=== PATIENT | male | born 1940 | race Hispanic/Latino ===

== ENCOUNTER 2019-01-23 21:59 | Emergency (ER) | payer MEDICARE ==
[~2019-01-23] VITALS: Ht 167.6 cm; Wt 93.4 kg
[2019-01-23 23:19] LABS: BASOPHILS % 0.1 % (0.0-1.0); EOSINOPHILS # (AUTO) 0.1 (0.0-0.4); EOSINOPHILS % 1.2 % (0.0-6.0); HEMATOCRIT 34.2 % (38.2-49.6); HEMOGLOBIN 11.5 g/dL (14.0-18.0); LYMPHOCYTES # (AUTO) 1.7 (1.0-3.2); LYMPHOCYTES % 24.5 % (18.0-39.1); MEAN CORPUSCULAR HEMOGLOBIN 30.7 pg (28-32); MEAN CORPUSCULAR HGB CONC 33.6 g/dL (31-35); MEAN CORPUSCULAR VOLUME 91.2 fL (81-99); MONOCYTES # (AUTO) 0.4 (0.2-0.8); MONOCYTES % 6.2 % (4.4-11.3); NEUTROPHILS # (AUTO) 4.7 (2.1-6.9); NEUTROPHILS % 67.9 % (38.7-80.0); PLATELET COUNT 192 x10e3/uL (140-360); RED BLOOD COUNT 3.75 x10e6/uL (4.3-5.7); RED CELL DISTRIBUTION WIDTH 13.8 % (11.7-14.4)
--- NOTE | 2019-01-23 23:26 | Diagnostic Imaging Report ---
EXAMINATION: CHEST SINGLE (PORTABLE) INDICATION: pedal edema ^[id number] ^2230 COMPARISON: None FINDINGS: TUBES and LINES: None. LUNGS: Linear density in the right upper lobe associated with elevation of the right hemidiaphragm suggestive of platelike atelectasis. There is no evidence of pneumonia or pulmonary edema. PLEURA: No pleural effusion or pneumothorax. HEART AND MEDIASTINUM: The cardiomediastinal silhouette is unremarkable. BONES AND SOFT TISSUES: No acute osseous lesion. UPPER ABDOMEN: No free air under the diaphragm. IMPRESSION: Right upper lobe platelike atelectasis. Signed by: Dr. Christine Naranjo M.D. on 01/23/2019 11:23 PM
[2019-01-23 23:33] LABS: ALBUMIN/GLOBULIN RATIO 1.3 (0.8-2.0); CALCIUM 9.5 mg/dL (8.4-10.2); CREATININE, SERUM 1.33 mg/dL (0.72-1.25)
[2019-01-24 00:22] LABS: CREATINE KINASE MB 2.4 ng/mL (0-5.0)
[2019-01-24 00:37] VITALS: BP 165/76
[2019-01-24] MEDS ORDERED: FUROSEMIDE INJ 10 MG/ML 4 ML VIAL IV ONE (00:45)
== END 2019-01-24 01:09 | disposition home or self-care (01) ==
LOC: ER 21:59
DX: I10 Essential (primary) hypertension (principal)
CPT/HCPCS: 36415; 71045; 80053; 82550; 82553; 83880; 84484; 85025; 93005; 99284; J1940

== ENCOUNTER 2020-04-09 07:57 | Emergency (ER) | payer MEDICARE ==
[~2020-04-09] VITALS: Ht 167.6 cm; Wt 93.4 kg
--- OUTSIDE RECORDS SUMMARY | 2020-04-09 08:12 | XMS REPORT | Continuity of Care Document ---
Author Author [facility] t Organization [facility] Address [address] [place] [address] Phone Unavailable Care Team Providers Care Administration Vice President Name Role Phone NONSTAFF PCP Unavailable Judit Rodriges MD Attlexis Jadyn TORRES Unavailable Problems This patient has no known problems. Allergies, Adverse Reactions, Alerts This patient has no known allergies or adverse reactions. Medications This patient has no known medications. Procedures This patient has no known procedures. Encounters Start Date/Time End Date/Time Encounter Type Admission Type Attendi [facility] Care Department Encounter ID Source 2020-01-26 22:39:44 2020-01-27 02:31:00 Emergency Andres Rodriges [facility] ([facility]) [id number] 2019-01-23 21:59:00 2019-01-24 01:09:00 Departed Emergency Room 1 JR TORRES [facility] [id number] [facility] Results Test Description Test Time Test Comments Results Result Comments Source B-Type Natriuretic Peptide 2019-01-24 00:31:00 Test Item B-Type Natriuretic Peptide (test code = 52536-0) 98.3 0-100 [facility] Kinase [id number] 00:31:00* Test Item Value Reference Range Interpretation Comments Creatine Kinase MB (test code = 06946-9) 2.40 0-5.0 [facility] CentralTroponin [id number] 00:31:00* Test Item Value Reference Range Interpretation Comments Troponin I (test code = QOF0930) 0.005 0-0.300 [facility] Hip[facility]15-76 23:34:00* Test Item Value Reference Range Interpretation Comments Sodium Level (test code = 2951-2) 142 136-145 [facility] CentralPotassium Tvahw2158-92-09 23:34:00* Test Item Value Reference Range Interpretation Comments Potassium Level (test code = 2823-3) 4.0 3.5-5.1 [facility] CentralChloride [id number] 23:34:00* Test Item Value Reference Range Interpretation Comments Chloride Level (test code = 2075-0) 109 98-107 H [facility] CentralCarbon Dioxide [id number] 23:34:00* Test Item Value Reference Range Interpretation Comments Carbon Dioxide Level (test code = 2028-9) 25 22-29 [facility] CentralAnion Nji0477-89-02 23:34:00* Test Item Value Reference Range Interpretation Comments Anion Gap (test code = 51150-4) 12.0 8-16 [facility] Central[facility] Urea [id number] 23:34:00* Test Item Value Reference Range Interpretation Comments Blood Urea Nitrogen (test code = 3094-0) 19 7-26 [facility] CentralCreatinine2019-06-12 23:34:00* Test Item Value Reference Range Interpretation Comments Creatinine (test code = 2160-0) 1.33 0.72-1.25 H [facility] CentralBUN/Creatinine Ghobt3984-43-74 23:34:00* Test Item Value Reference Range Interpretation Comments BUN/Creatinine Ratio (test code = 3097-3) 14 6-25 [facility] CentralEstimat Glomerular Filtration Rate 2019-01-23 23:34:00* Test Item Value Reference Range Interpretation Comments Estimat Glomerular Filtration Rate (test code = 723188331) 52 >60 L Ranges were taken from the National Kidney Disease Education Program and the [facility] literature.Reference ranges:60 or greater: Arjkqu00-43 ( for 3 consecutive months): Chronic kidney disease 15 or less: Kidney failureMidCoast Medical Center – CentralGlucose Erqul7329-19-57 23:34:00* Test Item Value Reference Range Interpretation Comments Glucose Level (test code = JLO8209) 90 74-118 [facility] CentralCalcium Asazi3844-56-45 23:34:00* Test Item Value Reference Range Interpretation Comments Calcium Level (test code = 94977-8) 9.5 8.4-10.2 [facility] CentralTotal Pwkavkeht9098-18-51 23:34:00* Test Item Value Reference Range Interpretation Comments Total Bilirubin (test code = 1975-2) 1.4 0.2-1.2 H [facility] CentralAspartate Amino Transf (AST/SGOT) 2019-01-23 23:34:00* Test Item Value Reference Range Interpretation Comments Aspartate Amino Transf (AST/SGOT) (test code = Aspartate Amino Transf (AST/SGOT)) 18 5-34 [facility] CentralAlanine Aminotransferase (ALT/SGPT) 2019-01-23 23:34:00* Test Item Value Reference Range Interpretation Comments Alanine Aminotransferase (ALT/SGPT) (test code = 1742-6) 12 0-55 [facility] CentralTotal Rabtcov1693-94-28 23:34:00* Test Item Value Reference Range Interpretation Comments Total Protein (test code = 2885-2) 7.2 6.5-8.1 [facility] CentralAlbumin2019-06-12 23:34:00* Test Item Value Reference Range Interpretation Comments Albumin (test code = 1751-7) 4.0 3.5-5.0 [facility] CentralGlobulin2019-06-12 23:34:00* Test Item Value Reference Range Interpretation Comments Globulin (test code = 17981-8) 3.2 2.3-3.5 [facility] CentralAlbumin/Globulin Awsau8502-08-57 23:34:00 * Test Item Value Reference Range Interpretation Comments Albumin/Globulin Ratio (test code = 1759-0) 1.3 0.8-2.0 [facility] CentralAlkaline Ignhfvysdtz0802-76-18 23:34:00* Test Item Value Reference Range Interpretation Comments Alkaline Phosphatase (test code = 6768-6) 96 40-150 [facility] CentralCreatine Xzaice6650-00-57 23:34:00* Test Item Value Reference Range Interpretation Comments Creatine Kinase (test code = 2157-6) 107 30-200 [facility] CentralCHEST SINGLE (PORTABLE)2019-01-23 23:21:00 [facility] [address] [address] Patient Name: BENITO ALCARAZ MR #: [id number] : 1940 Age/Sex: 78/M Req #: [id number] Adm Physician: Ordered by: JR TORRES MD Report #: [id number] Location: ER Room/Bed: Procedure: [id number] DX /CHEST SINGLE (PORTABLE) Exam Date: 01/23/19 Exam Ti me: 2230 REPORT STATUS: Signed E XAMINATION: CHEST SINGLE (PORTABLE) INDICATION: pedal edema [id number] COMPARISON: None FINDINGS: TUBES and LINES: None. LUNGS: Linear density in the right upper lobe associated with elevation of the right hemidiaphragm suggestive of platelike atelectasis. There is no evide nce of pneumonia or pulmonary edema. PLEURA: No pleural effusion or pneu mothorax. HEART AND MEDIASTINUM: The cardiomediastinal silhouette is unrem arkable. BONES AND SOFT TISSUES: No acute osseous lesion. UPPER ABDOMEN: No free air under the diaphragm. IMPRESSION: Right upper lobe platelike atelectasis. Signed by: Dr. Christine Germain M.D. on 01/12 11:23 PM Dictated By: JEAN CARLOS GERMAIN MD, MD [id number] Transcribed By: NICK on 01/23/19 2 323 COPY TO: JR TORRES MD White Blood [id number] 23:20:00* Test Item Value Reference Range Interpretation Comments White Blood Count (test code = 6690-2) 6.91 4.8-10.8 [facility] Central[facility] Blood Glqhp7662-02-90 23:20:00* Test Item Value Reference Range Interpretation Comments Red Blood Count (test code = 789-8) 3.75 4.3-5.7 L [facility] CentralHemoglobin2019-06-12 23:20:00* Test Item Value Reference Range Interpretation Comments Hemoglobin (test code = 26978-9) 11.5 14.0-18.0 L [facility] CentralHematocrit2019-06-12 23:20:00* Test Item Value Reference Range Interpretation Comments Hematocrit (test code = 4544-3) 34.2 38.2-49.6 L [facility] CentralMean Corpuscular Vvepus4477-62-98 23:20:00* Test Item Value Reference Range Interpretation Comments Mean Corpuscular Volume (test code = 787-2) 91.2 81-99 [facility] CentralMean Corpuscular Ffbibjidvv3765-11-56 23:20:00* Test Item Value Reference Range Interpretation Comments Mean Corpuscular Hemoglobin (test code = 785-6) 30.7 28-32 [facility] CentralMean Corpuscular Hemoglobin Concent 2019-01-23 23:20:00* Test Item Value Reference Range Interpretation Comments Mean Corpuscular Hemoglobin Concent (test code = 786-4) 33.6 31-35 [facility] CentralRed Cell Distribution Mvkmt8755-96-59 23:20:00* Test Item Value Reference Range Interpretation Comments Red Cell Distribution Width (test code = 99859-5) 13.8 11.7 -14.4 [facility] CentralPlatelet Oakow5789-49-22 23:20:00* Test Item Value Reference Range Interpretation Comments Platelet Count (test code = 777-3) 192 140-360 [facility] CentralNeutrophils (%) (Auto)2019-01-23 23:20:00 * Test Item Value Reference Range Interpretation Comments Neutrophils (%) (Auto) (test code = 08863-5) 67.9 38.7-80.0 [facility] CentralLymphocytes (%) (Auto)2019-01-23 23:20:00 * Test Item Value Reference Range Interpretation Comments Lymphocytes (%) (Auto) (test code = 736-9) 24.5 18.0-39.1 [facility] CentralMonocytes (%) (Auto)2019-01-23 23:20:00* Test Item Value Reference Range Interpretation Comments Monocytes (%) (Auto) (test code = 5905-5) 6.2 4.4-11.3 [facility] CentralEosinophils (%) (Auto)2019-01-23 23:20:00 * Test Item Value Reference Range Interpretation Comments Eosinophils (%) (Auto) (test code = 713-8) 1.2 0.0-6.0 [facility] CentralBasophils (%) (Auto)2019-01-23 23:20:00* Test Item Value Reference Range Interpretation Comments Basophils (%) (Auto) (test code = 706-2) 0.1 0.0-1.0 [facility] CentralIM GRANULOCYTES %2019-01-23 23:20:00* Test Item Value Reference Range Interpretation Comments IM GRANULOCYTES % (test code = IM GRANULOCYTES %) 0.1 0.0- 1.0 [facility] CentralNeutrophils # (Auto)2019-01-23 23:20:00* Test Item Value Reference Range Interpretation Comments Neutrophils # (Auto) (test code = 751-8) 4.7 2.1-6.9 [facility] CentralLymphocytes # (Auto)2019-01-23 23:20:00* Test Item Value Reference Range Interpretation Comments Lymphocytes # (Auto) (test code = 86515-8) 1.7 1.0-3.2 [facility] CentralMonocytes # (Auto)2019-01-23 23:20:00* Test Item Value Reference Range Interpretation Comments Monocytes # (Auto) (test code = 742-7) 0.4 0.2-0.8 [facility] CentralEosinophils # (Auto)2019-01-23 23:20:00* Test Item Value Reference Range Interpretation Comments Eosinophils # (Auto) (test code = 711-2) 0.1 0.0-0.4 [facility] CentralBasophils # (Auto)2019-01-23 23:20:00* Test Item Value Reference Range Interpretation Comments Basophils # (Auto) (test code = 704-7) 0.0 0.0-0.1 [facility] CentralAbsolute Immature Granulocyte (auto 2019-01-23 23:20:00* Test Item Value Reference Range Interpretation Comments Absolute Immature Granulocyte (auto (power t code = Absolute Immature Granulocyte (auto) 0.01 0-0.1 [facility]
--- OUTSIDE RECORDS SUMMARY | 2020-04-09 08:12 | XMS REPORT | Summary of Care ---
Author Author [facility] Organization [facility] Address Unknown Phone Unavailable Care Team Providers Care Company Laborer Name Role Phone Pcp, Patient Does Not Have A PCP [phone] Reason for Visit * Reason Comments Back Pain * Auth/Cert Referred By Contact Referred To Contact Status Reason Specialty Diagnoses / Procedures [facility] Emergency Dept [address] [place] [phone] Emergency Medicine Encounter Details Care Team Description Date Type Department Andres Rodriges MD [address] [facility] [id number] [place] [address] Acute right-sided low back pain without sciatica (Primary Dx) 01/26/2020 Emergency [facility] [address] 01/27/2020 [place] [address] Allergies No Known Allergiesdocumented as of this encounter (statuses as of 01/27/2020) Medications End Date Status Medication Sig Dispensed Refills Start Date Active cyclobenzaprine 5 mg Take 1 tablet 21 tablet 0 tabletIndications: Acute by mouth 3 0 right-sided low back pain (three) times without sciatica daily. documented as of this encounter (statuses as of 01/27/2020) Active Problems Not on filedocumented as of this encounter (statuses as of 01/27/2020) Social History Date Tobacco Use Types Packs/Day Years Used Never Assessed Sex Assigned at Date Recorded Not on file Industry Job Start Date Occupation Not on file Not on file Not on file Travel End Travel History Travel Start No recent travel history available. Date Recorded COVID-19 Exposure Response 01/27/2020 12:01 AM CDT In the last month, have you been in contact with No / Unsure someone who was confirmed or suspected to have Coronavirus / COVID-19? documented as of this encounter Last Filed Vital Signs Reading Time Taken Comments Vital Sign 141/70 01/27/2020 1:10 AM CDT Blood Pressure 71 01/27/2020 1:10 AM CDT Pulse 37 C (98.6 F) 01/27/2020 1:10 AM CDT Temperature 16 01/27/2020 1:10 AM CDT Respiratory Rate 99% 01/27/2020 1:10 AM CDT Oxygen Saturation - - Inhaled Oxygen Concentration 95.3 kg (210 lb) 01/26/2020 10:43 PM CDT Weight - - Height - - Body Mass Index documented in this encounter Discharge Instructions * Instructions* Andres Rodriges MD - 01/27/2020 DIAGNOSIS Diagnoses that have been ruled out: None Diagnoses that are still under consideration: None Final diagnoses: Acute right-sided low back pain without sciatica NO LIFE-THREATENING FINDINGS ON TODAY'S EXAM. PROCEDURES IN THE ER TODAY: Orders Placed This Encounter Procedures URINALYSIS BASIC METABOLIC PANEL (NA, K, CL, CO2, GLUCOSE, BUN, CREATININE, CA) CBC WITH DIFF CBC WITH DIFFERENTIAL MEDICATIONS ADMINISTERED IN THE ER TODAY: Orders Placed This Encounter Medications HYDROcodone-acetaminophen (NORCO 5) 5-325 mg tablet 1 tablet YOUR PRESCRIPTIONS AND ACCR-ZKK-BAOEPVB MEDICATION RECOMMENDATIONS: Tylenol/ibuprofen Flexeril SPECIAL CARE INSTRUCTIONS: Follow up with PCP Return to the ED if worsening of symptoms. FOLLOW-UP RECOMMENDATIONS: RECOMMEND FOLLOW-UP WITH A PRIMARY CARE PROVIDER OR SPECIALIST IN 2-5 DAYS, LIANA CANDACEY IF NO IMPROVEMENT IN SYMPTOMS. TO FOLLOW-UP WITHIN THE [facility], TRY THESE OPTIONS (CLINIC APPOIN TMENTS AVAILABLE ON CONS-CS-YZEC BASIS): 1. SCHEDULE AN APPOINTMENT ONLINE AT [email or web address] 2. OR CALL THE [facility] AT OR 3. OR CALL YOUR [facility] PHYSICIAN'S OFFICE DIRECTLY IF YOU ARE ALREADY AN ESTABLISH ED [facility] PATIENT. OR, YOU MAY FOLLOW-UP WITH A PROVIDER OF YOUR CHOICE, SUCH : 1. A PHYSICIAN OF YOUR CHOICE 2. [facility], . LOCATIONS IN [facility] 3. [facility], [address], [place], [place]; [phone] RETURN TO ER FOR WORSENING OF SYMPTOMS. * Attachments The following attachments cannot be sent through Care Everywhere.* Back Sprain/Strain ([place] Ver[place]an) documented in this encounter Plan of Treatment Health Maintenance Due Date Last Done Comments DTaP,Tdap,and Td Vaccines 1951 (1 - Tdap) Depression Screening 1952 Zoster Recombinant 1992 Vaccine (SHINGRIX) (1 of 2) Medicare Wellness Visit 11/06/2007 PNEUMOCOCCAL VACCINES 65+ 11/06/2007 (1 of 2 - PCV13) INFLUENZA VACCINE (Season 04/14/2020 Ended) documented as of this encounter Procedures Comments Procedure Name Priority Date/Time Associated Diag nosis CBC WITH DIFFERENTIAL STAT 01/27/2020 Acute ri ght-sided low 12:51 AM CDT back pain without sciatica CBC WITH DIFFERENTIAL STAT 01/27/2020 Acute ri ght-sided low 12:51 AM CDT back pain without sciatica BASIC METABOLIC PANEL STAT 01/27/2020 Acute ri ght-sided low (NA, K, CL, CO2, GLUCOSE, 12:51 AM CDT back pain w ithout BUN, CREATININE, CA) sciatica URINALYSIS STAT 01/27/2020 Acute right-alma delia ed low 12:39 AM CDT back pain without sciatica CONSENT/REFUSAL FOR Routine 01/26/2020 DIAGNOSIS AND TREATMENT 9:55 PM CDT documented in this encounter Results * CBC WITH DIFFERENTIAL (01/27/2020 12:51 AM CDT) WBC 6.71 4.20 - 10.70 [facility] 10*3/L [facility] RBC 4.47 4.26 - 5.52 10*6/L [facility] HGB 13.7 12.2 - 16.4 g/dL [facility] RY [facility] HCT 40.2 38.4 - 49.3 % [facility] MCV 89.9 81.7 - 95.6 fL [facility] MCH 30.6 26.1 - 32.7 pg [facility] MCHC 34.1 31.2 - 35.0 g/dL [facility] RDW-SD 43.6 38.5 - 51.6 fL [facility] RDW-CV 13.2 12.1 - 15.4 % [facility] PLT 234 150 - 328 10*3/L [facility] MPV 10.2 9.8 - 13.0 fL [facility] NRBC/100 WBC 0.0 0.0 - 10.0 /100 WBCs [facility] NRBC x10^3 <0.01 10*3/L [facility] GRAN MAT (NEUT) 68.3 % [facility] % [facility] IMM GRAN % 0.10 % [facility] LYMPH % 22.2 % [facility] MONO % 6.6 % [facility] EOS % 2.7 % [facility] BASO % 0.1 % [facility] GRAN MAT 4.58 1.99 - 6.95 10*3/uL [facility] x10^3(ANC) [facility] IMM GRAN x10^3 <0.03 0.00 - 0.06 10*3/uL [facility] LYMPH x10^3 1.49 1.09 - 3.23 10*3/uL [facility] MONO x10^3 0.44 0.36 - 1.02 10*3/uL [facility] EOS x10^3 0.18 0.06 - 0.53 10*3/uL [facility] BASO x10^3 <0.03 0.01 - 0.09 10*3/uL [facility] Specimen Blood - ARM, LEFT Performing Organization Address City/[facility]/Zipcode Ph one Number [facility] CLIA: [id number], [address] [place], [place] [address] [facility] * BASIC METABOLIC PANEL (NA, K, CL, CO2, GLUCOSE, BUN, CREATININE, CA) (01/27/2020 12:51 AM CDT) NA 138 135 - 145 mmol/L [facility] K 4.5Comment: Slight hemolysis 3.5 - 5.0 mmol/L [facility] CL 105 98 - 108 mmol/L [facility] Y [facility] CO2 TOTAL 25 23 - 31 mmol/L [facility] AGAP 8 2 - 16 [facility] BUN 23Comment: Slight hemolysis 7 - 23 mg/dL [facility] GLUCOSE 138 (H) 70 - 110 mg/dL [facility] CREATININE 1.14 0.60 - 1.25 mg/dL [facility] CALCIUM 9.6 8.6 - 10.6 mg/dL [facility] eGFR 62.3 mL/min/1.73m2 [facility] Calculation [facility] (Non-[facility] Citizen Of [place]) eGFR 75.5 mL/min/1.73m2 [facility] Calculation [facility] ([facility] Citizen Of [place]) Specimen Blood - ARM, LEFT Narrative Performed At Association of Glomerular Filtration Rate (GFR) and S taging of Kidney Disease* [facility] + + +------ + [facility] | GFR (mL/min/1.73 m2) | With Kidney Damage | [facility] Kid[facility] Damage [facility] + + -------+ + | >90 | S tage one | Normal + + -------+ + | 60-89 | St age two | Decreased GFR + + -------+ + | 30-59 | St age three | Stage three + + -------+ + | 15-29 | [address] age four | Stage four + + -------+ + | <15 (or dialysis) | Stage fi ve | Stage five + + -------+ + *Each stage assumes the associated GFR level has been in effect for at least three months. Stages 1 to 5, with or without kidney disease, indicate chronic kidney disease. Notes: Determination of stages one and two (with eGFR >59mL/min/1.73 m2) requires estimation of kidney damage fo r at least three months as defined by structural or functional abnormalities of the kidney, manifested by either: Pathological abnormalities or Markers o f kidney damage (including abnormalities in the composition of the blood or urin e or abnormalities in imaging tests). Performing Organization Address [facility] Ph one Number [facility] CLIA: [id number], [address] [place], [place] [address] [facility] * URINALYSIS (01/27/2020 12:39 AM CDT) APPEARANCE Clear Clear [facility] COLOR Yellow Yellow [facility] PH 6.0 4.8 - 8.0 [facility] SP GRAVITY 1.016 1.003 - 1.030 [facility] GLU U QUAL Normal Normal [facility] BLOOD Negative Negative [facility] KETONES Negative Negative [facility] PROTEIN Negative Negative [facility] UROBILIN 2.0 mg/dL (A) Normal [facility] BILIRUBIN Negative Negative [facility] NITRITE Negative Negative [facility] LEUK RICHA Negative Negative [facility] RBC/HPF 3 0 - 3 HPF [facility] WBC/HPF 1 0 - 5 HPF [facility] BACTERIA Negative Negative [facility] Specimen Urine - URINE, CLEAN CATCH Performing Organization Address [facility] Ph one Number [facility] CLIA: [id number], [address] [place], [place] [address] [facility] documented in this encounter Visit Diagnoses Diagnosis Acute right-sided low back pain without sciatica - Primary documented in this encounter Administered Medications Action Date Dose Rate Site Medication Order MAR Action 01/27/2020 12:40 AM CDT 1 tablet HYDROcodone-acetaminophen (NORCO 5) Given 5-325 mg tablet 1 tablet 1 tablet, Oral, ONCE, 1 dose, 01/27/20 at 0115, ALEXIS documented in this encounter Insurance Type Payer Benefit Subscriber ID Effective Phone Address Plan / Dates Group Medicare Adv HMO [employer] [place] [employer] [id number] [facility] documented as of this encounter"
[2020-04-09] MEDS ORDERED: ACETAMINOPHEN 325 MG TAB PO ONE (08:15)
[2020-04-09] MEDS ORDERED: ONDANSETRON HCL 4 MG ORAL DISINTEGRATING TAB PO ONE (08:15)
[2020-04-09] MEDS ORDERED: ACETAMINOPHEN 325 MG TAB ONE (08:23)
--- NOTE | 2020-04-09 08:25 | Emergency Department Note ---
History of Present Illnes History of Present Illness Chief Complaint: COVID PUI History of Present Illness This is a 79 year old male arrives to the ED with complaints of cough fever chills, patient states there son and daughter angry grandchild have covid pneumonia and had had numerous family events the past week where they have interacted with them. Patient states like her complaints and symptoms. Historian: Patient Arrival Mode: Car Seam Hammerer Required: No Onset (how long ago): day(s) Radiation: Reports non-radiation Severity: mild Duration (how long): day(s) Progression: waxing and waning Associated symptoms: Reports fever/chills, Reports loss of appetite Past Medical/Family History Physician Review I have reviewed the patient's past medical and family history. Any updates have been documented here. Past Medical History Recent Fever: Yes Clinical Suspicion of Infectio: Yes New/Unexplained Change in Ment: No Past Medical History: Hypertension, Diabetes, Hyperlipedemia Past Surgical History: None Social History Counseling Performed: No Alcohol Use: None Any Illegal Drug Use: No Physically hurt or threatened: No Other Last Tetanus: UNK Any Pre-Existing Lines (PICC,: No Review of Systems Review of Systems Constitutional: Reports as per HPI, Reports fever, Reports malaise, Reports weakness EENTM: Reports no symptoms Cardiovascular: Reports no symptoms Respiratory: Reports as per HPI, Reports cough Gastrointestinal: Reports no symptoms Genitourinary: Reports no symptoms Musculoskeletal: Reports no symptoms Integumentary: Reports no symptoms Neurological: Reports no symptoms Psychological: Reports no symptoms Endocrine: Reports no symptoms Hematological/Lymphatic: Reports no symptoms Physical Exam Related Data Allergies: Coded Allergies: No Known Allergies (Unverified , 04/09/20) Triage Vital Signs Vital Signs Date Time Temp Pulse Resp B/P (MAP) Pulse Ox O2 Delivery O2 Flow Rate FiO2 04/09/20 07:59 98.7 70 20 140/64 96 Room Air Vital signs reviewed: Yes Physical Exam CONSTITUTIONAL Constitutional: Present well-developed, Present well-nourished, Present obese HENT HENT: Present normocephalic, Present atraumatic, Present oropharynx clear/moist, Present nose normal HENT L/R: Present left ext ear normal, Present right ext ear normal EYES Eyes: Reports PERRL, Reports conjunctivae normal NECK Neck: Present ROM normal PULMONARY Pulmonary: Present effort normal, Present breath sounds normal CARDIOVASCULAR Cardiovascular: Present regular rhythm, Present heart sounds normal, Present capillary refill normal, Present normal rate GASTROINTESTINAL Abdominal: Present soft, Present nontender, Present bowel sounds normal GENITOURINARY Genitourinary: Present exam deferred SKIN Skin: Present warm, Present dry MUSCULOSKELETAL Musculoskeletal: Present ROM normal NEUROLOGICAL Neurological: Present alert, Present oriented x 3, Present no gross motor or sensory deficits PSYCHOLOGICAL Psychological: Present mood/affect normal, Present judgement normal Results Laboratory Lab results reviewed: Yes Imaging Imaging results reviewed: Yes Assessment & Plan Medical Decision Making MDM 79-year-old well-appearing male arrives to the ED with complaints of cough fever chills, exposure to Covid 19 noted from family members. Patient not requiring supplemental oxygen. Chest x-ray reviewed and showed no concerning findings. Patient's oxygen saturation 99% on room air, is well appearing and stable for discharge home. Strict red flags for return given. Assessment & Plan Final Impression: (1) COVID-19 Last Vital Signs Date Time Temp Pulse Resp B/P (MAP) Pulse Ox O2 Delivery O2 Flow Rate FiO2 04/09/20 07:59 98.7 70 20 140/64 96 Room Air Home Meds Active Scripts Acetaminophen/Codeine* (TYLENOL # 3*) 1 Ea Tab, 1 TAB PO Q8HR PRN for COUGH, #14 Prov:JR LOVE, 04/09/20 Ondansetron Hcl* (ZOFRAN*) 4 Mg Tablet, 4 MG SL Q6H PRN for NAUSEA, #14 MG 0 Refills Prov:JR LOVE DO 04/09/20 Azithromycin (Z-CHANTELLE) 250 Mg Tablet, 1 PKG PO DIRECTED, #1 PKG 0 Refills Prov:JR LOVE, 04/09/20 Medications in the ED Ondansetron HCl 4 mg ONCE ONCE PO ; Start 04/09/20 at 08:15; Stop 04/09/20 at 08:17; Status DC Acetaminophen 650 mg ONCE ONCE PO ; Start 04/09/20 at 08:15; Stop 04/09/20 at 08:17; Status DC Acetaminophen 650 mg STK-MED ONCE .ROUTE ; Start 04/09/20 at 08:23; Stop 04/09/20 at 08:17; Status DC JR LOVE, DO Apr 09, 2020 08:25
--- NOTE | 2020-04-09 09:01 | Diagnostic Imaging Report ---
EXAMINATION: CHEST SINGLE (PORTABLE) INDICATION: Cough COMPARISON: Chest radiograph 01/23/2019 FINDINGS: LINES/TUBES:None LUNGS:The lungs are well-inflated. Unchanged right suprahilar linear opacities. PLEURA:No pleural effusion or pneumothorax. MEDIASTINUM:The cardiomediastinal silhouette appears normal in size and shape. BONES/SOFT TISSUES:No acute osseous injury. ABDOMEN:No free air under the diaphragm. IMPRESSION: No focal pneumonia or pulmonary edema. Unchanged right suprahilar linear opacities, likely atelectasis. Signed by: Zachary Mckeon MD on 04/09/2020 8:58 AM
[2020-04-09] MEDS ORDERED: AZITHROMYCIN250 MG PO (09:16)
[2020-04-09] MEDS ORDERED: ZOFRAN4 MG SL (09:16)
[2020-04-09] MEDS ORDERED: TYLENOL # 31 EA PO (09:16)
== END 2020-04-09 09:50 | disposition home or self-care (01) ==
LOC: ER 08:08
DX: U07.1 COVID-19 (principal); R50.9 Fever, unspecified; R05 Cough; I10 Essential (primary) hypertension; E11.9 Type 2 diabetes mellitus without complications; E78.5 Hyperlipidemia, unspecified
CPT/HCPCS: 71045; 99283; Q0162; U0002

== ENCOUNTER 2020-04-19 16:25 | Inpatient (IN) | payer MEDICARE ==
[~2020-04-19] VITALS: Ht 167.6 cm; Wt 93.4 kg
[~2020-04-19 16:25] MED LIST: AZITHROMYCIN250 MG PO; TYLENOL # 31 EA PO; ZOFRAN4 MG SL
[2020-04-19] MEDS ORDERED: ACETAMINOPHEN 325 MG TAB PO ONE (17:00)
[2020-04-19] MEDS ORDERED: SODIUM CHLORIDE 0.9% 1000ML 1,000 ML IV STA (17:31)
--- NOTE | 2020-04-19 17:37 | Diagnostic Imaging Report ---
EXAMINATION: CHEST SINGLE (PORTABLE) INDICATION: cough, fever, loss of taste COMPARISON: None FINDINGS: AP view TUBES and LINES: None. . LUNGS/PLEURA: There are low lung volumes. Unchanged right suprahilar linear opacities, likely atelectasis. There is new left basilar opacity which could be pneumonia. There is persistent elevation of right hemidiaphragm. There is no pleural effusion or pneumothorax. HEART AND MEDIASTINUM: There is mild widening of mediastinum which could be exaggerated by low lung volumes. The cardiac silhouette is unremarkable. BONES AND SOFT TISSUES: No acute osseous lesion. Soft tissues are unremarkable. UPPER ABDOMEN: No free air under the diaphragm. IMPRESSION: New left basilar opacity could represent pneumonia. Signed by: Miguel Rivera MD on 04/19/2020 5:34 PM
[2020-04-19 17:42] LABS: BASOPHILS % 0.2 % (0.0-1.0); HEMOGLOBIN 12.9 g/dL (14.0-18.0); LYMPHOCYTES # (AUTO) 1.1 (1.0-3.2); LYMPHOCYTES % 22.4 % (18.0-39.1); MEAN CORPUSCULAR HEMOGLOBIN 30.3 pg (28-32); MEAN CORPUSCULAR HGB CONC 33.9 g/dL (31-35); MEAN CORPUSCULAR VOLUME 89.2 fL (81-99); MONOCYTES # (AUTO) 0.3 (0.2-0.8); MONOCYTES % 5.5 % (4.4-11.3); NEUTROPHILS # (AUTO) 3.5 (2.1-6.9); NEUTROPHILS % 71.7 % (38.7-80.0); PLATELET COUNT 174 x10e3/uL (140-360); RED BLOOD COUNT 4.26 x10e6/uL (4.3-5.7); RED CELL DISTRIBUTION WIDTH 13.4 % (11.7-14.4)
[2020-04-19 17:52] LABS: INR 0.92; PROTHROMBIN TIME 12.8 seconds (11.9-14.5)
[2020-04-19 17:53] LABS: PARTIAL THROMBOPLASTIN TIME 38.3 seconds (23.8-35.5)
--- NOTE | 2020-04-19 17:58 | Emergency Department Note ---
History of Present Illnes History of Present Illness Chief Complaint: COVID PUI History of Present Illness This is a 79 year old male with cough, F/C, achy all over, chest hurts when coughing. COVID positive family members confirmed. covid positive in icu here. non smoker. denies sob/difficulty breathing. Positive loss of taste Historian: Patient, Family Member Arrival Mode: Car Pencils Washer Required: No Onset (how long ago): day(s) (4) Radiation: Reports non-radiation Severity: moderate Onset quality: gradual Duration (how long): day(s) (4) Timing of current episode: constant (achy), intermittent (f/c) Progression: waxing and waning Chronicity: new Context: Denies recent illness Relieving factors: none Exacerbating factors: none Associated symptoms: Reports chest pain, Reports cough, Reports fever/chills; Denies shortness of breath (ARLEN RAMIREZ MD) Past Medical/Family History Physician Review I have reviewed the patient's past medical and family history. Any updates have been documented here. (ARLEN RAMIREZ MD) Past Medical History Recent Fever: Yes Clinical Suspicion of Infectio: Yes New/Unexplained Change in Ment: No Past Medical History: Hypertension, Diabetes, Hyperlipedemia Past Surgical History: Cataract Removal (ARLEN RAMIREZ MD) Social History Smoking Cessation: Never Smoker Counseling Performed: No Alcohol Use: None Any Illegal Drug Use: No TB Exposure/Symptoms: No Physically hurt or threatened: No (ARLEN RAMIREZ MD) Family History Family history of heart diseas: No (ARLEN RAMIREZ MD) Other Last Tetanus: UNK Any Pre-Existing Lines (PICC,: No (ARLEN RAMIREZ MD) Review of Systems Review of Systems Constitutional: Reports as per HPI, Reports chills, Reports fever EENTM: Reports as per HPI, Reports other (loss of taste) Cardiovascular: Reports as per HPI, Reports chest pain (rib pain with cough) Respiratory: Reports as per HPI, Reports chest congestion, Reports cough Gastrointestinal: Reports no symptoms Genitourinary: Reports no symptoms Musculoskeletal: Reports as per HPI, Reports other (achy all over) Integumentary: Reports no symptoms Neurological: Reports no symptoms Psychological: Reports no symptoms Endocrine: Reports no symptoms Hematological/Lymphatic: Reports no symptoms (ARLEN RAMIREZ MD) Physical Exam Related Data Allergies: Coded Allergies: No Known Allergies (Unverified , 04/09/20) Triage Vital Signs Vital Signs Date Time Temp Pulse Resp B/P (MAP) Pulse Ox O2 Delivery O2 Flow Rate FiO2 04/19/20 16:38 102.5 116 16 117/68 96 Room Air Vital signs reviewed: Yes (ARLEN RAIMREZ MD) Physical Exam CONSTITUTIONAL Constitutional: Present well-developed, Present well-nourished HENT HENT: Present normocephalic, Present atraumatic, Present oropharynx clear/moist, Present nose normal HENT L/R: Present left ext ear normal, Present right ext ear normal EYES Eyes: Reports PERRL, Reports conjunctivae normal NECK Neck: Present ROM normal PULMONARY Pulmonary: Present effort normal, Present breath sounds normal CARDIOVASCULAR Cardiovascular: Present regular rhythm, Present heart sounds normal, Present capillary refill normal, Present normal rate GASTROINTESTINAL Abdominal: Present soft, Present nontender, Present bowel sounds normal GENITOURINARY Genitourinary: Present exam deferred SKIN Skin: Present warm, Present dry MUSCULOSKELETAL Musculoskeletal: Present ROM normal NEUROLOGICAL Neurological: Present alert, Present oriented x 3, Present no gross motor or sensory deficits PSYCHOLOGICAL Psychological: Present mood/affect normal, Present judgement normal (ARLEN RAMIREZ MD) Procedures 12 Lead ECG Interpretation ECG Interpretation : ECG: ECG 1 Pencils Washer: Interpreted by ED physician Date: Apr 19, 2020 Time: 17:11 Rhythm: sinus tachycardia Conduction: LAFB ST segments normal: Yes T waves normal: Yes Other findings: LVH Clinical Impression: abnormal ECG Additional Comments poor RWP (ARLEN RAMIREZ MD) Assessment & Plan Medical Decision Making MDM fever, cough, likely COVID with h/o DM, HTN, HLD and chest pain which is more likely from coughing - CBC, chem, ecg, cardiac enzymes, cxr, bnp, lactic acid, blood cx's, lactic, ua/cx, covid swab - r/o stemi/nstemi, pneumonia, COVID19, chf. Report to Dr Carlos for dispo (ARLEN RAMIREZ MD) MDM 1830 pt with lactic acid of 2.3 1 liter ns iv bolus ordered, pt has already received rocephin 1 gram iv . pt does not have an elevated wbc and covid 19 test is still pending at this time 190 pt covid test returned positive i spoke with dr coats admit to covid unit, i spoke to dr art cuellar. i left a message for dr jones (PANCHO CARLOS MD) Reassessment Reassessment Dr Carlos to f/u labs, dispo (ARLEN RAMIREZ MD) Assessment & Plan Final Impression: (1) Pneumonia (2) Suspected 2019 novel coronavirus infection (ARLEN RAMIREZ MD) Final Impression: (1) Pneumonia (2) Suspected 2019 novel coronavirus infection (3) Viral pneumonia (4) COVID-19 (PANCHO CARLOS MD) Depart Disposition: ADMITTED Last Vital Signs Date Time Temp Pulse Resp B/P (MAP) Pulse Ox O2 Delivery O2 Flow Rate FiO2 04/19/20 17:32 112 18 109/66 94 Room Air 04/19/20 16:38 102.5 (ARLEN RAMIREZ MD) Home Meds Active Scripts Acetaminophen/Codeine* (TYLENOL # 3*) 1 Ea Tab, 1 TAB PO Q8HR PRN for COUGH, #14 Prov:JUAN CARLOSR AMBICA, DO 04/09/20 Ondansetron Hcl* (ZOFRAN*) 4 Mg Tablet, 4 MG SL Q6H PRN for NAUSEA, #14 MG 0 Refills Prov:SANDHIR, AMBICA, DO 04/09/20 Azithromycin (Z-CHANTELLE) 250 Mg Tablet, 1 PKG PO DIRECTED, #1 PKG 0 Refills Prov:SANDHIR, AMBICA, DO 04/09/20 Medications in the ED Acetaminophen 975 mg ONCE ONCE PO ; Start 04/19/20 at 17:00; Stop 04/19/20 at 17:03; Status DC Sodium Chloride 1,000 ml @ 0 mls/hr Q0M STAT IV ; Start 04/19/20 at 17:31; Stop 04/19/20 at 17:32; Status DC (ARLEN RAMIREZ MD) ARLEN RAMIREZ MD Apr 19, 2020 17:58 PANCHO CARLOS MD Apr 19, 2020 18:48
[2020-04-19] MEDS ORDERED: AZITHROMYCIN 500MG/NS 250 ML 250 ML IV ONE (18:00)
[2020-04-19] MEDS ORDERED: CEFTRIAXONE SOD 1 GM/NS 50 ML 50 ML IV ONE (18:00)
[2020-04-19 18:01] LABS: ALBUMIN 4.1 g/dL (3.5-5.0); ALBUMIN/GLOBULIN RATIO 1.1 (0.8-2.0); ANION GAP 17.9 mmol/L (8-16); CALCIUM 8.3 mg/dL (8.4-10.2); CREATININE, SERUM 1.61 mg/dL (0.72-1.25); POTASSIUM 3.9 mmol/L (3.5-5.1)
[2020-04-19 18:08] LABS: CREATINE KINASE MB 5.1 ng/mL (0-5.0)
[2020-04-19] MEDS ORDERED: SODIUM CHLORIDE 0.9% 1000ML 1,000 ML IV ONE ×2 (18:30→19:15)
--- NOTE | 2020-04-19 19:03 | NUR ---
PTS DAUGHTER LAYNE MAY BE CONTACTED AT [phone]
[2020-04-19] MEDS ORDERED: CEFTRIAXONE SOD 1 GM/NS 50 ML 50 ML IV SCH (19:15)
[2020-04-19] MEDS ORDERED: ACETAMINOPHEN 325 MG TAB PO PRN (19:15)
[2020-04-19] MEDS ORDERED: DEXAMETHASONE SOD PHOS 10 MG/1 ML VIAL IV SCH (19:15)
[2020-04-19] MEDS ORDERED: DEXTROSE 50% SYRINGE 50 ML IV PRN (19:15)
[2020-04-19] MEDS: AZITHROMYCIN 500MG/SOD CHL 0.9% 250ML BAG IV SCH (19:30)
[2020-04-19] MEDS ORDERED: GUAIFENESIN/CODEINE 10 ML CUP PO PRN (20:30)
[2020-04-19] MEDS ORDERED: ZOLPIDEM TARTRATE 5 MG TAB PO PRN (20:30)
[2020-04-19] MEDS ORDERED: ONDANSETRON HCL INJ 2MG/ML 2ML 2 MG/ML VIAL IV PRN (20:30)
[2020-04-19 20:34] LABS: CLARITY,URINE CLEAR (CLEAR); COLOR,URINE YELLOW (YELLOW); LEUKOCYTE ESTERASE ,URINE NEGATIVE (NEGATIVE); NITRITE,URINE NEGATIVE (NEGATIVE); PROTEIN,URINE DIPSTICK NEGATIVE (NEGATIVE)
[2020-04-19 20:35] LABS: BILIRUBIN,URINE NEGATIVE (NEGATIVE); KETONES,URINE NEGATIVE (NEGATIVE); URINE UROBILINOGEN 0.2 mg/dL (0.2 - 1)
[2020-04-19] MEDS: HEPARIN SOD (PORCINE) 5,000 UNIT/ML VIAL SC SCH (20:46)
[2020-04-19 20:49] LABS: BACTERIA,URINE MANY /HPF; EPITHELIAL CELLS,URINE FEW /LPF; WBC,URINE (MAN) 0-5 /HPF (0-5)
[2020-04-19] MEDS: INSULIN REGULAR, HUMAN 100 UNIT/1 ML 3ML VIAL SQ SCH (21:13)
--- NOTE | 2020-04-19 21:36 | NUR ---
PTS DAUGHTER, LAYNE, UPDATED ON PTS STATUS PER PTS REQUEST; DENIES ANY FURTHER NEEDS AT THIS TIME
--- NOTE | 2020-04-19 21:46 | NUR ---
Patient arrived to unit from ER via stretcher. In stable condition, respirations even and unlabored on room air, no s/s of distress at this time. Oriented to room, urinal provided, patient's personal cane at bedside. Bed locked and in lowest position, side rails upx3, alarm on, call light placed within reach. All safety measures in place.
[2020-04-19] MEDS ORDERED: ZINC50 M1 PO (22:15)
[2020-04-19] MEDS ORDERED: AMLOD-VALSA-HC1 EAC2 PO (22:15)
[2020-04-19] MEDS ORDERED: METOPROLOL TART50 MG PO (22:15)
[2020-04-19 22:16] VITALS: BP 116/62
[2020-04-19 22:37] VITALS: BP 100/55
[2020-04-20] VITALS (8 sets, daily range): BP systolic 105–149; BP diastolic 58–79
--- NOTE | 2020-04-20 01:26 | NUR ---
Patient refusing blood draw at this time for cardiac markers. Will attempt to draw along with labs scheduled at 0500. Patient denying chest pain, normal sinus rhythm in 70s per telemetry.
[2020-04-20 06:28] LABS: BASOPHILS % 0.4 % (0.0-1.0); HEMATOCRIT 37.2 % (38.2-49.6); HEMOGLOBIN 12.2 g/dL (14.0-18.0); LYMPHOCYTES # (AUTO) 0.6 (1.0-3.2); LYMPHOCYTES % 22.2 % (18.0-39.1); MEAN CORPUSCULAR HEMOGLOBIN 30.1 pg (28-32); MEAN CORPUSCULAR HGB CONC 32.8 g/dL (31-35); MEAN CORPUSCULAR VOLUME 91.9 fL (81-99); MONOCYTES # (AUTO) 0.1 (0.2-0.8); MONOCYTES % 3.9 % (4.4-11.3); NEUTROPHILS % 73.1 % (38.7-80.0); PLATELET COUNT 146 x10e3/uL (140-360); RED BLOOD COUNT 4.05 x10e6/uL (4.3-5.7); RED CELL DISTRIBUTION WIDTH 13.3 % (11.7-14.4)
--- NOTE | 2020-04-20 06:48 | NUR ---
Routine consult called to Dr. Costa.
[2020-04-20 06:49] LABS: ALBUMIN 3.5 g/dL (3.5-5.0); ALBUMIN/GLOBULIN RATIO 1.1 (0.8-2.0); ANION GAP 16.5 mmol/L (8-16); CALCIUM 7.6 mg/dL (8.4-10.2); CREATININE, SERUM 1.22 mg/dL (0.72-1.25); POTASSIUM 3.5 mmol/L (3.5-5.1)
[2020-04-20 07:33] LABS: CREATINE KINASE MB 10.4 ng/mL (0-5.0)
[2020-04-20] MEDS ORDERED: POTASSIUM CHLORIDE 20 MEQ IV ONE (08:30)
[2020-04-20] MEDS ORDERED: SODIUM CHLORIDE IV ONE (08:30)
--- NOTE | 2020-04-20 08:48 | Consultation ---
DATE OF CONSULTATION: Pulmonary Critical Care Consultation CHIEF COMPLAINT: Left-sided abdominal pain and history of COVID-19. HISTORY OF PRESENT ILLNESS: The patient is a 79-year-old man. He has several family members with COVID-19. He reports being sick for a week. He had some left-sided abdominal pain for 3 or 4 days, but now has resolved. He did not have nausea, vomiting, or diarrhea. He does not complain of cough or difficulty breathing. PAST MEDICAL HISTORY: 1. No prior history of diabetes. 2. No prior history of heart disease. 3. History of hypertension. PAST SURGICAL HISTORY: Cataract, eye surgery. ALLERGIES: NO KNOWN DRUG ALLERGIES. SOCIAL HISTORY: The patient is not an active smoker or drinker. FAMILY HISTORY: There are several family members with COVID-19. REVIEW OF SYSTEMS: The patient is afebrile. He has no headache. He has no neck pain. He is not complaining of any chest pain. He denies cough or difficulty breathing. He did have left-sided abdominal pain, but it has improved. He has no nausea or vomiting. He has no leg edema. PHYSICAL EXAMINATION: VITAL SIGNS: The patient is afebrile, blood pressure is 108/60, pulse is 63, and saturation is 98%. HEENT: Shows no facial swelling or erythema. LYMPHATIC: Shows no submandibular, cervical, or supraclavicular adenopathy. CARDIAC: Reveals regular rate and rhythm with normal S1 and S2. LUNGS: Auscultation of lungs reveals clear breath sounds bilaterally. There is no wheezing. ABDOMEN: Soft and nontender. There is no rebound or guarding. EXTREMITIES: There is no leg edema or calf tenderness. SKIN: Shows no rashes. NEUROLOGICAL: Shows no focal abnormalities. LABORATORY DATA: White blood cell count is 2.8, hemoglobin is 12.2, and platelet count is 146. BUN to creatinine ratio has improved from 24/1.61 to 26/1.22. Carbon dioxide is 14 with normal anion gap. RADIOGRAPHIC DATA: Chest x-ray shows left basal opacity, possibly representing pneumonia. IMPRESSION: 1. Coronavirus disease 2019 and viral pneumonia. 2. Acute kidney injury. 3. Metabolic acidosis. 4. Abdominal pain, that has resolved. PLAN: 1. Continue current antibiotics. 2. Discontinue normal saline, which could be worsening the metabolic acidosis and use Ringer's lactate instead. 3. Continue to monitor kidney function. 4. The patient should not require remdesivir or dexamethasone at this time because he is not requiring oxygen and does not have respiratory insufficiency. MD NITA Holguin/MODL /[id number]
[2020-04-20] MEDS: INSULIN REGULAR, HUMAN 100 UNIT/1 ML 3ML VIAL SQ SCH ×4 (09:00→20:09)
[2020-04-20] MEDS: HEPARIN SOD (PORCINE) 5,000 UNIT/ML VIAL SC SCH ×2 (09:15→21:13)
[2020-04-20] MEDS ORDERED: DOCUSATE SODIUM 100 MG CAP PO PRN (11:15)
[2020-04-20] MEDS ORDERED: ZOLPIDEM TARTRATE 5 MG TAB PO PRN (11:15)
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
[2020-04-20 11:29] LABS: CHOL/HDL RATIO 3.5 (3.9-4.7)
[2020-04-20] MEDS: METOPROLOL TARTRATE 50 MG TAB PO SCH ×2 (12:23→23:21)
[2020-04-20] MEDS: GUAIFENESIN/DEXTROMETHORPHAN LIQD 5 ML UDC NG SCH ×2 (14:00→22:20)
[2020-04-20] MEDS: BENZONATATE 100 MG CAP PO SCH ×2 (14:22→20:41)
--- NOTE | 2020-04-20 14:38 | NUR ---
pt told RN that he wanted to go see his who is admitted in room 297, patient stated that shift superintendent caustic cresylate allowed him to leave the room and sit with his while she was confused. spoke with recharger and house mover supervisor who both said that the patient can not come out of the room for risk of exposing others. called Dr. Costa have not received call back. pt was informed that he is not able to leave the room because he is on isolation, pt was non-agreeable at first and stated that he was going to see his regardless, however he eventually complied. patient asked RN to go speak with his to explain what is happening, RN reassured patient.
--- NOTE | 2020-04-20 15:30 | NUR ---
Dr. Jones rounded and told patient that he could sit with his in room [address]. Dr[address] jones stated that the patient needs to wear his mask and nursing staff needs to make sure the patient does not touch anything in the hallway while going to 's room. Informed charge nurse
[2020-04-20] MEDS: ASCORBIC ACID 500 MG TAB PO SCH (17:06)
[2020-04-20] MEDS ORDERED: CEFTRIAXONE SOD 1 GM/NS 50 ML 50 ML IV SCH (19:00)
[2020-04-20 19:12] LABS: BASOPHILS % 0.1 % (0.0-1.0); HEMATOCRIT 39.6 % (38.2-49.6); HEMOGLOBIN 13.4 g/dL (14.0-18.0); LYMPHOCYTES % 9.3 % (18.0-39.1); MEAN CORPUSCULAR HEMOGLOBIN 29.8 pg (28-32); MEAN CORPUSCULAR HGB CONC 33.8 g/dL (31-35); MONOCYTES # (AUTO) 0.7 (0.2-0.8); MONOCYTES % 6.7 % (4.4-11.3); NEUTROPHILS # (AUTO) 8.8 (2.1-6.9); NEUTROPHILS % 83.5 % (38.7-80.0); PLATELET COUNT 197 x10e3/uL (140-360); RED CELL DISTRIBUTION WIDTH 13.4 % (11.7-14.4)
--- NOTE | 2020-04-20 19:31 | Consultation ---
DATE OF CONSULTATION: HISTORY OF PRESENT ILLNESS: Mr. Butcher is a 79-year-old male, comes into the emergency room with shortness of breath and cough, not feeling well and left-sided chest pain when he takes a deep breath. The patient came to emergency room. His had COVID-19. He was tested positive for COVID-19. He is currently lying in bed comfortably, but he is able to walk without oxygen. PAST MEDICAL HISTORY: Denies. PAST SURGICAL HISTORY: Denies. ALLERGIES: NKA. SOCIAL HISTORY: There is no smoking, drug abuse, or alcohol abuse. FAMILY HISTORY: Otherwise unremarkable. REVIEW OF SYSTEMS: Besides the chest pain, he denies any shortness of breath. He has minimum cough. PHYSICAL EXAMINATION: GENERAL: Currently alert and oriented, does not seem to be in acute distress. VITAL SIGNS: Stable, currently afebrile. HEENT: He is not icteric. NECK: Supple. CHEST: Few crackles at the left base. COR: S1 and S2. ABDOMEN: Soft. Bowel sounds present. EXTREMITIES: No edema. SKIN: No rash. IMPRESSION: 1. Coronavirus disease 2019. 2. Superimposed bacterial pneumonia. 3. The patient has not hypoxemia. Recommendation; agree with Rocephin and azithromycin since we were concerned about community-acquired pneumonia. Discontinue steroid. 4. Acute kidney injury. 5. Hyponatremia. 6. Reassess in the morning. If he seems to improve, can switch to oral antibiotic. MD JSOY Brush/BARB /[id number]
[2020-04-20 19:34] LABS: ALANINE AMINOTRANSFERASE 32 IU/L (0-55); ALBUMIN/GLOBULIN RATIO 1.1 (0.8-2.0); ALKALINE PHOSPHATASE 70 IU/L (40-150); ANION GAP 17.6 mmol/L (8-16); BLOOD UREA NITROGEN 30 mg/dL (7-26); BUN/CREATININE RATIO 26 (6-25); CALCIUM 8.5 mg/dL (8.4-10.2); CARBON DIOXIDE 15 mmol/L (22-29); CHLORIDE 108 mmol/L (98-107); CREATININE, SERUM 1.15 mg/dL (0.72-1.25); EST GLOMERULAR FILTRATION RATE > 60 ML/MIN (60-); GLUCOSE 148 mg/dL (74-118); POTASSIUM 3.6 mmol/L (3.5-5.1); SODIUM 137 mmol/L (136-145)
[2020-04-20] MEDS: AZITHROMYCIN 500MG/SOD CHL 0.9% 250ML BAG IV SCH (19:47)
[2020-04-21] VITALS: BP 134/68
[2020-04-21 04:00] VITALS: BP 132/75
[2020-04-21] MEDS: GUAIFENESIN/DEXTROMETHORPHAN LIQD 5 ML UDC NG SCH (05:21)
--- NOTE | 2020-04-21 07:00 | NUR ---
received bedside report. pt is in room 297 sitting at his 's bedside. permission was given by Dr. Costa. pt is alert, no s/s of distress. pt instructed to call RN if help is needed
--- NOTE | 2020-04-21 07:04 | NUR ---
[facility]. ALERT AND RESTING IN BED. NO SIGNS IV INFILTRATION. BED LOCKED AND IN LOW POSITION. CALL LIGHT WITHIN REACH. BED ALARM ACTIVATED. Addendum: 04/21/20 at 0706 by Regi Menon RN REPORT GIVEN TO [facility]. ALERT AND ORIENTED. RESTING AT BEDSIDE. NO SIGNS IV INFILTRATION. CALL LIGHT WITHIN REACH. EDUCATED TO CALL NURSE FOR ASSISTANCE.
[2020-04-21] MEDS: INSULIN REGULAR, HUMAN 100 UNIT/1 ML 3ML VIAL SQ SCH ×2 (07:30→11:30)
[2020-04-21 08:00] VITALS: BP 139/89
[2020-04-21 08:07] LABS: BASOPHILS % 0.1 % (0.0-1.0); HEMATOCRIT 39.7 % (38.2-49.6); HEMOGLOBIN 13.2 g/dL (14.0-18.0); LYMPHOCYTES # (AUTO) 1.1 (1.0-3.2); LYMPHOCYTES % 7.8 % (18.0-39.1); MEAN CORPUSCULAR HEMOGLOBIN 30.1 pg (28-32); MEAN CORPUSCULAR HGB CONC 33.2 g/dL (31-35); MEAN CORPUSCULAR VOLUME 90.6 fL (81-99); MONOCYTES # (AUTO) 0.8 (0.2-0.8); MONOCYTES % 5.7 % (4.4-11.3); NEUTROPHILS # (AUTO) 12.1 (2.1-6.9); PLATELET COUNT 200 x10e3/uL (140-360); RED BLOOD COUNT 4.38 x10e6/uL (4.3-5.7); RED CELL DISTRIBUTION WIDTH 13.7 % (11.7-14.4)
[2020-04-21] MEDS: ASCORBIC ACID 500 MG TAB PO SCH (08:20)
[2020-04-21] MEDS: BENZONATATE 100 MG CAP PO SCH (08:20)
[2020-04-21] MEDS: HEPARIN SOD (PORCINE) 5,000 UNIT/ML VIAL SC SCH (08:21)
[2020-04-21 08:24] LABS: ANION GAP 19.1 mmol/L (8-16); CALCIUM 8.7 mg/dL (8.4-10.2); CREATININE, SERUM 1.2 mg/dL (0.72-1.25); POTASSIUM 4.1 mmol/L (3.5-5.1)
[2020-04-21] MEDS ORDERED: TESSALON PERLE100 MG PO (08:35)
[2020-04-21] MEDS ORDERED: ZITHROMAX500 MG PO (08:35)
[2020-04-21] MEDS ORDERED: Guaifenesin/Codeine PO (08:35)
[2020-04-21] MEDS ORDERED: KEFLEX500 MG PO (08:35)
[2020-04-21] MEDS ORDERED: ASCORBIC ACID500 MG PO (08:35)
[2020-04-21 08:56] VITALS: BP 139/89
[2020-04-21] MEDS ORDERED: ZINC SULFATE 220 MG CAP PO SCH (09:00)
[2020-04-21 12:00] VITALS: BP 134/93
[2020-04-21] MEDS: METOPROLOL TARTRATE 50 MG TAB PO SCH (12:17)
--- NOTE | 2020-04-21 12:20 | NUR ---
PT DISCHARGING HOME TODAY W HIS . IMM LETTER EXPLAINED TO PT. PT VERBALIZED UNDERSTANDING. IMM LETTER SIGNED. COPY TO PT AND COPY TO CHART.
--- NOTE | 2020-04-21 13:45 | Progress Note ---
DATE: SUBJECTIVE: The patient is feeling better. He has less dyspnea and less cough. He has no fevers. PHYSICAL EXAMINATION: VITAL SIGNS: The patient is afebrile. The vital signs are stable. HEENT: Shows no facial swelling or erythema. LYMPHATIC: Shows no submandibular, cervical, or supraclavicular adenopathy. CARDIAC: Reveals regular rate and rhythm with normal S1 and S2. LUNGS: Auscultation of lungs reveals rhonchorous breath sounds bilaterally. There is no wheezing. ABDOMEN: Soft and nontender. There is no rebound or guarding. EXTREMITIES: Show no leg edema or calf tenderness. LABORATORY DATA: White blood cell count is 14 and the hemoglobin is 13.2. The platelet count is 200. The BUN to creatinine ratio is 30 to 1.2 and the carbon dioxide is 18. The other electrolytes are within normal limits. IMPRESSION: 1. Viral pneumonia and COVID-19 infection. 2. Acute kidney injury. 3. Abdominal pain that has resolved. PLAN: 1. Arrange for discharge home. 2. Continue to monitor renal function. 3. The patient should follow up in 3 weeks. 4. Return to the ER for any cough, fever, or worsening symptoms. Raul Nettles MD LM/BARB /[id number]
== END 2020-04-21 14:48 | disposition home or self-care (01) | DRG 177 ==
LOC: ER 16:40 → ERHOLD 20:18 → MED/SURG3 21:17
PROVIDERS: ADMIT Internal Medicine; ATTEND Internal Medicine
PROC: 8E0ZXY6 Isolation (ICD-10-PCS; principal; 2020-04-19)
DX: U07.1 COVID-19 (principal); J12.9 Viral pneumonia, unspecified; E87.2 Acidosis; N17.9 Acute kidney failure, unspecified; E87.1 Hypo-osmolality and hyponatremia
CPT/HCPCS: 36415; 71045; 80048; 80053; 80061; 81001; 82550; 82553; 82948; 83036; 83605; 83735; 83880; 84484; 85025; 85610; 85730; 87040; 87086; 93005; 93306; 99284; J0456; J0696; J1100; J1644; J1817; J7030; U0002